=== PATIENT | male | born 1990 | race African-American/Black ===

== ENCOUNTER → 2018-05-30 | Outpatient (CLI) | payer OTHER ==
[~2018-05-30] MED LIST: DILAUDID2 MG ORAL; HYDREA500 MG PO; IBUPROFEN200 MG ORAL; MULTIVITAMINS1 EAC2 ORAL; NORCO 10-325 T1 EACH ORAL; OXYCONTIN10 MG ORAL; norco PO
--- NOTE | 2018-05-31 14:37 | Diagnostic Imaging Report ---
Indication: Trauma and chest pain. Comparison: None Findings: 4 views of the right chest wall was obtained for evaluation of the ribs. Bony mineralization appears normal. There is no acute fracture identified. There is no soft tissue swelling demonstrated. The lung is essentially clear. The costophrenic angle is sharp. Other osseous structures visualized are unremarkable. Impression: Negative unilateral rib series
== END | disposition home or self-care (01) ==
LOC: RAD 15:15
DX: R07.81 Pleurodynia (principal)

== ENCOUNTER 2018-08-28 10:30 | Outpatient (RCR) | payer OTHER | END 2018-09-19 | disposition home or self-care (01) | LOC: PTY 10:30 | DX: S42.402D Unspecified fracture of lower end of left humerus, subsequent encounter for fracture with routine healing (principal); X58.XXXD Exposure to other specified factors, subsequent encounter ==

== ENCOUNTER 2018-09-20 11:14 | Outpatient (RCR) | payer OTHER | END 2018-10-19 | disposition home or self-care (01) | LOC: PTY 11:14 | DX: M79.602 Pain in left arm (principal) ==